=== PATIENT | female | born 1995 | race African-American/Black ===

== ENCOUNTER 2025-06-20 11:32 | Emergency (ER) | payer MEDICAID ==
[~2025-06-20] VITALS: Ht 160 cm; Wt 58.0 kg
[2025-06-20 11:48] VITALS: O2SAT 100
[2025-06-20 12:04] LABS: BASOPHILS % 0.3 % (0.0-2.0); EOSINOPHILS % 0.3 % (0.0-5.0); HEMATOCRIT. 28.0 % (36.0-48.0); HEMOGLOBIN. 8.4 g/dL (12.0-16.0); LYMPHOCYTES % 18.6 % (20.0-50.0); MEAN PLATELET VOLUME 6.9 fl (7.4-10.4); MONOCYTES % 8.7 % (2.0-8.0); NEUTROPHILS % 72.1 % (40.0-76.0); PLATELET 864 x1000/uL (130-400); RED BLOOD CELL COUNT 4.32 mill/uL (4.2-5.4); RED CELL DISTRIBUTION WIDTH 26.8 % (11.6-14.6)
[2025-06-20 12:05] LABS: ADD RBC MORPHOLOGY YES
[2025-06-20 12:15] LABS: PLATELET ESTIMATE INCREASED
[2025-06-20 12:20] LABS: CREATININE 0.7 mg/dL (0.6-1.0); UREA NITROGEN BLOOD 11 mg/dL (9-23)
[2025-06-20 12:24] LABS: TROPONIN I HIGH SENSITIVITY < 4 ng/L (3.0-34)
[2025-06-20 12:41] LABS: CLARITY URINE CLOUDY (CLEAR); COLOR URINE YELLOW (YELLOW); GLUCOSE URINE NEGATIVE (NEGATIVE); KETONES URINE 4+ (NEGATIVE); LEUKOCYTE ESTERASE URINE TRACE (NEGATIVE); NITRITE URINE NEGATIVE (NEGATIVE); OCCULT BLOOD URINE 3+ (NEGATIVE); PH URINE 6.0 (4.5-8.0); PROTEIN URINE 3+ (NEGATIVE); SPECIFIC GRAVITY URINE 1.034 (1.005-1.030); UROBILINOGEN URINE 1.0 E.U./dL (0.2-1.0)
[2025-06-20 12:59] LABS: HCG SCREEN NEGATIVE
[2025-06-20 13:03] LABS: ASPARTATE AMINOTRANSFERASE 15 IU/L (<34); BILIRUBIN DIRECT 0.2 mg/dL (<=3.0); BILIRUBIN TOTAL 0.8 mg/dL (0.1-1.0); PROTEIN TOTAL 8.4 g/dL (6.0-8.3)
[2025-06-20 13:08] LABS: SQUAMOUS EPITHELIAL CELL URINE 2+ /lpf (RARE/1+)
[2025-06-20 13:09] LABS: MUCUS URINE 3+ /lpf (< = 2+)
[2025-06-20 13:11] LABS: BACTERIA URINE 2+; HYALINE CASTS URINE 0-5 /lpf
[2025-06-20] MEDS: ONDANSETRON HCL 4MG/2ML INJ IV NR (13:23)
[2025-06-20] MEDS: FAMOTIDINE 20MG/2ML VIAL IV NR (13:30)
[2025-06-20] MEDS: SODIUM CHLORIDE 0.9% 1,000 ML IV ONE (13:31)
[2025-06-20] MEDS: DICYCLOMINE HCL 10MG/ML 2ML VIAL IM NR (13:31)
[2025-06-20] MEDS ORDERED: ONDA-241 MT (15:15)
[2025-06-20] MEDS: POTASSIUM CHLORIDE 20MEQ/PACKET PO ONE (15:20)
[2025-06-20 15:43] VITALS: BP 137/89; PULSE 76; RESP 16; TEMP 36.9; O2SAT 100
== END 2025-06-20 15:46 | disposition home or self-care (01) ==
LOC: ER 11:32
DX: R11.2 Nausea with vomiting, unspecified (principal); D64.9 Anemia, unspecified; Z79.899 Other long term (current) drug therapy
CPT/HCPCS: 80076; 80048; 81003; 81025; 84703; 83690; 85025; 84484; 36415; 71045; 96361; 96372; 96374; 96375; 99284; J0500; J1308; J2405; Z7610

== ENCOUNTER 2025-09-25 11:07 | Emergency (ER) | payer MEDICAID ==
[~2025-09-25] VITALS: Ht 160 cm; Wt 50.0 kg
[~2025-09-25 11:07] MED LIST: ONDA-241 MT
[2025-09-25 11:19] VITALS: TEMP 36.7; O2SAT 98
[2025-09-25 12:30] LABS: CLARITY URINE CLOUDY (CLEAR); COLOR URINE DARK YELLOW (YELLOW); GLUCOSE URINE NEGATIVE (NEGATIVE); KETONES URINE 4+ (NEGATIVE); LEUKOCYTE ESTERASE URINE NEGATIVE (NEGATIVE); NITRITE URINE NEGATIVE (NEGATIVE); OCCULT BLOOD URINE NEGATIVE (NEGATIVE); PH URINE 6.0 (4.5-8.0); PROTEIN URINE 3+ (NEGATIVE); SPECIFIC GRAVITY URINE 1.038 (1.005-1.030); UROBILINOGEN URINE 1.0 E.U./dL (0.2-1.0)
[2025-09-25 12:38] LABS: MUCUS URINE 3+ /lpf (< = 2+); SQUAMOUS EPITHELIAL CELL URINE 3+ /lpf (RARE/1+)
[2025-09-25 12:40] LABS: BACTERIA URINE TRACE; RBC URINE 0-2 /hpf (0-2)
[2025-09-25 12:55] LABS: BASOPHILS % 0.3 % (0.0-2.0); EOSINOPHILS % 0.1 % (0.0-5.0); HEMATOCRIT. 33.4 % (36.0-48.0); HEMOGLOBIN. 10.2 g/dL (12.0-16.0); LYMPHOCYTES % 15.6 % (20.0-50.0); MEAN PLATELET VOLUME 7.6 fl (7.4-10.4); MONOCYTES % 8.6 % (2.0-8.0); NEUTROPHILS % 75.4 % (40.0-76.0); PLATELET 661 x1000/uL (130-400); RED BLOOD CELL COUNT 4.62 mill/uL (4.2-5.4); RED CELL DISTRIBUTION WIDTH 20.3 % (11.6-14.6)
[2025-09-25] MEDS: METOCLOPRAMIDE HCL 10MG/2ML VIAL IV ONE (13:14)
[2025-09-25] MEDS: SODIUM CHLORIDE 0.9% 1,000 ML IV ONE (13:14)
[2025-09-25] MEDS: KETOROLAC 15MG/ML VIAL IV ONE (13:23)
[2025-09-25 13:31] LABS: CREATININE 0.7 mg/dL (0.6-1.0); UREA NITROGEN BLOOD 9 mg/dL (9-23)
[2025-09-25 13:33] LABS: ASPARTATE AMINOTRANSFERASE 16 IU/L (<34); BILIRUBIN DIRECT 0.2 mg/dL (<=3.0); BILIRUBIN TOTAL 0.7 mg/dL (0.1-1.0); PROTEIN TOTAL 8.5 g/dL (6.0-8.3)
[2025-09-25] MEDS: POTASSIUM CHLORIDE 20MEQ/PACKET PO ONE (13:51)
[2025-09-25] MEDS ORDERED: METO-293 MT (14:05)
[2025-09-25] MEDS ORDERED: ONDA-239 PO (14:05)
[2025-09-25 14:50] VITALS: BP 116/68; PULSE 58; RESP 14; O2SAT 100
[2025-09-26 12:21] LABS: *AMPHETAMINES SCREEN URINE NEGATIVE (NEGATIVE); *BARBITURATES SCREEN URINE NEGATIVE (NEGATIVE); *BENZODIAZEPINES SCREEN URINE NEGATIVE (NEGATIVE)
[2025-09-26 12:22] LABS: *COCAINE SCREEN URINE NEGATIVE (NEGATIVE); CANNABINOID URINE SCREEN PRESUMPTIVE POSITIVE (NEGATIVE); ECSTASY MDMA SCREEN URINE NEGATIVE (NEGATIVE); METHADONE URINE SCREEN NEGATIVE (NEGATIVE); OPIATES URINE SCREEN NEGATIVE (NEGATIVE); PHENCYCLIDINE URINE SCREEN NEGATIVE (NEGATIVE)
== END 2025-09-25 15:02 | disposition home or self-care (01) ==
LOC: ER 12:23
DX: E87.6 Hypokalemia (principal); R11.2 Nausea with vomiting, unspecified; R51.9 Headache, unspecified; E86.0 Dehydration; Z86.018 Personal history of other benign neoplasm; Z79.899 Other long term (current) drug therapy
CPT/HCPCS: 80076; 80305; 80048; 81003; 81025; 83690; 85025; 36415; 96361; 96374; 96375; 99284; J1885; J2765; J7030; Z7610